=== PATIENT | female | born 1955 | race Caucasian/White ===

== ENCOUNTER → 2023-06-20 08:17 | Outpatient (CLI) | payer MEDICARE, OTHER, SELFPAY ==
--- NOTE | 2023-06-20 | DI.CT.S_ITS ---
PROCEDURE: CT IVP A/P W/WO INDICATIONS: HEMATURIA TECHNIQUE: Optional 5 mm thick noncontrast images acquired from the diaphragm to the symphysis pubis. After the administration of intravenous contrast, 5 mm thick images acquired from the diaphragm to the symphysis pubis after a 10-minute delay. 2 mm thick coronal and sagittal reformats were then performed of the kidneys and ureters. For radiation dose reduction, the following was used: automated exposure control, adjustment of mA and/or kV according to patient size. COMPARISON: None. FINDINGS: Image quality: Excellent. Lung bases: Scarring in the left lung base. Small hiatal hernia. Urinary system: Both kidneys are normal in size, without hydronephrosis or nephrolithiasis on pre-contrast images. No perinephric fat stranding. There is normal bilateral renal enhancement. Renal calyces appear normal in morphology when filled with contrast. Opacified portions of both ureters demonstrate normal caliber. Bladder wall thickness is normal. No calcified bladder stones. Liver: No solid mass. Scattered subcentimeter hypoattenuating lesions, too small to characterize by CT but probably small cysts. Gallbladder and biliary tree: No gallstones or biliary dilation. Spleen: Normal size. Pancreas: No ductal dilation. Adrenal glands: No adrenal nodules. Peritoneum and bowel: Bowel loops demonstrate normal wall thickness and caliber. No free fluid or air. Gastric sleeve surgery. Colonic diverticulosis without evidence of diverticulitis. Nodes and vessels: No retroperitoneal or mesenteric adenopathy by size criteria. Aorta and inferior vena cava are normal in size. Abdominal wall: No ventral hernias. Pelvis: No pathologic free pelvic fluid. No inguinal hernias or adenopathy. 7.6 x 11.5 x 8.4 cm right ovarian cystic mass containing greater than four enhancing papillary projections. Bones: No suspicious bony lesions. No vertebral body compression fractures. IMPRESSION: 7.6 x 11.5 x 8.4 cm right ovarian cystic mass containing greater than 4 enhancing papillary projections. 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 Recommend referral to gynecologic oncologist. No evidence of deyanira disease or peritoneal carcinomatosis. No nephrolithiasis or filling defect within the opacified renal collecting system or ureters. Dictated by: Prince Sweeney M.D. on 06/20/2023 at 10:15 Approved by: Prince Sweeney M.D. on 06/20/2023 at 10:24
--- NOTE | 2023-06-20 | DI.ECHO.S_ITS ---
[facility] +---------+ : : [address] : [address] : : : : [id number] : : : : Phone: [phone]+ Echocardiogram Report + + :Name: KULWANT SHELDON Study Date: 06/20/2023 Height: 63 in : :[facility] ReadingLocation: Weight: 225 lb : : Gender: Female BSA: 2.0 m2 : :: 1955 Age: 67 yrs BP: 143/75 mmHg: :Reason For Study: ATRIAL FIBRILLATION : :Ordering Physician: DANA, : :AMY Elena MD Performed By: Ivelisse Hoskins : :Referring: AMY CORTEZ MD : + + Interpretation Summary 1) Mildly dilated left ventricle with normal systolic function (EF 55-60%). 2) Normal right ventricular size and function. 3) There is mild aortic regurgitation. 4) No prior Echo available for comparison. Procedure: A two-dimensional transthoracic echocardiogram with color flow and Doppler was performed. The study quality was technically adequate. There is no prior echocardiogram noted for this patient. The patient was in sinus bradycardia with heart rates between 49-63 bpm during the exam. Left Ventricle: The estimated left ventricular end diastolic volume is 108 ml. The left ventricle is mildly dilated. There is normal left ventricular wall thickness. The ejection fraction is estimated to be 55-60%. Left ventricular systolic function appears normal without focal wall motion abnormalities. Diastolic parameters suggest a relaxation abnormality of the left ventricle, consistent with probable normal filling pressures. Right Ventricle: The right ventricle is normal in size and function. Atria: The left atrial size is normal. Right atrial size is normal. There is no Doppler evidence for an interatrial shunt. Mitral Valve: The mitral valve is normal in structure and function. There is no mitral regurgitation noted. Aortic Valve: The aortic valve opens well. The aortic valve is trileaflet. There is no aortic valve stenosis. There is mild aortic regurgitation. Tricuspid Valve: The tricuspid valve is normal in structure and function. There is trace tricuspid regurgitation. Pulmonary artery pressures cannot be estimated because of the lack of a measurable TR jet velocity. Pulmonic Valve: The pulmonic valve is not well seen, but is grossly normal. There is trace pulmonic regurgitation. Great Vessels: The aortic root is normal size. The dimensions of the ascending aorta are normal. The IVC is of normal diameter and collapses greater than 50% with a sniff. This suggests a low right atrial pressure of 3 mm Hg. Pericardium/ Pleura There is no pericardial effusion. There is no pleural effusion. MMode/2D Measurements & Calculations LVIDd: 6.1 cm LVOT diam: 2.2 cm LVIDs: 4.4 cm Ao root diam: 3.3 cm FS: 27.8 % asc Aorta Diam: 3.2 cm EPSS: 0.58 cm Ao Arch Diam (Prox Trans): 3.1 cm IVSd: 0.89 cm LVPWd: 1.1 cm LV arreaga. diameter/BSA (cm/m^2): 3.0 LV sys. diameter/BSA (cm/m^2): 2.2 LA A2 area: 20.2 cm2 RA long axis: 4.8 cm LA A4 area: 17.8 cm2 RA area: 12.3 cm2 LA length (vol): 4.6 cm RA vol: 26.9 ml LA vol: 66.7 ml RA : 13.2 ml/m2 LA vol index: 32.8 ml/m2 IVC diam: 1.6 cm RVD1 (basal): 3.9 cm RVD2 (mid): 3.3 cm TAPSE: 2.0 cm Doppler Measurements & Calculations Ao V2 max: 159.6 cm/sec LVOT Max Pradeep: 129.8 cm/sec Ao V2 mean: 111.8 cm/sec LV V1 max P.7 mmHg Ao max P.2 mmHg LV V1 VTI: 31.4 cm Ao mean P.5 mmHg KALEY(I,D): 3.2 cm2 Ao V2 VTI: 37.9 cm KALEY(V,D): 3.1 cm2 sev ratio: 0.83 KALEY indexed to BSA (cm^2/m^2): 1.6 MV E max pradeep: 110.3 cm/sec PA V2 max: 95.5 cm/sec MV A max pradeep: 100.9 cm/sec PA V2 mean: 64.4 cm/sec MV E/A: 1.1 PA mean P.8 mmHg Med Peak E' Pradeep: 9.6 cm/sec PA pr(Accel): 15.6 mmHg E/E' med: 11.5 Lat Peak E' Pradeep: 8.1 cm/sec E/E' lat: 13.6 E/e' average: 12.5 MV dec time: 0.[address] [facility] 119.6 ml Reading Physician:03:08 PM
== END ==
PROVIDERS: Family Provider Family Medicine; PCP Family Medicine; Referring Provider Internal Medicine Cardiovascular Disease; Visit Provider Urology
DX: C56.1 Malignant neoplasm of right ovary (principal); I35.1 Nonrheumatic aortic (valve) insufficiency; I48.91 Unspecified atrial fibrillation; R31.0 Gross hematuria; K44.9 Diaphragmatic hernia without obstruction or gangrene; K57.90 Diverticulosis of intestine, part unspecified, without perforation or abscess without bleeding
CPT/HCPCS: 74178; 93306; Q9967